=== PATIENT | male | born 1960 | race Caucasian/White ===

== ENCOUNTER 2018-08-21 17:07 | Emergency (ER) | payer MEDICAID ==
[~2018-08-21 17:07] MED LIST: CYCL10TA7 PO; GABA-531 PO; HYDR-522 PO; IBUP-2030 PO
== END 2018-08-21 19:30 | disposition left against medical advice (07) ==
LOC: ER 19:30
DX: Z53.21 Procedure and treatment not carried out due to patient leaving prior to being seen by health care provider (principal)

== ENCOUNTER 2018-12-16 11:27 | Emergency (ER) | payer MEDICAID ==
[~2018-12-16] VITALS: Ht 180.3 cm; Wt 90.0 kg
[2018-12-16] MEDS ORDERED: TETANUS, DIPHTHERIA, PERTUSSIS VAC/PF 0.5ML (>7YR OLD) IM ONE (12:45)
[2018-12-16 13:05] VITALS: BP 119/73
== END 2018-12-16 13:06 | disposition home or self-care (01) ==
LOC: ER 11:36
DX: S61.011A Laceration without foreign body of right thumb without damage to nail, initial encounter (principal); Z23 Encounter for immunization; M19.90 Unspecified osteoarthritis, unspecified site; W45.8XXA Other foreign body or object entering through skin, initial encounter; Y93.89 Activity, other specified; Y92.89 Other specified places as the place of occurrence of the external cause
CPT/HCPCS: 90471; 90715; 99283

== ENCOUNTER 2022-11-27 21:38 | Emergency (ER) | payer MEDICAID ==
[~2022-11-27 21:38] MED LIST changes: +CYCL10TA21 PO; -CYCL10TA7 PO; -GABA-531 PO; +GABA-532 PO
[2022-11-27 21:45] VITALS: PULSE 94
== END 2022-11-27 22:00 | disposition left against medical advice (07) ==
LOC: ER 21:38
DX: M79.675 Pain in left toe(s) (principal); R51.9 Headache, unspecified
CPT/HCPCS: 99281

== ENCOUNTER 2022-11-28 02:27 | Emergency (ER) | payer MEDICAID ==
[~2022-11-28] VITALS: Ht 172.7 cm; Wt 77.0 kg
[2022-11-28 02:37] VITALS: O2SAT 100
[2022-11-28] MEDS ORDERED: IBUPROFEN 400MG TABLET PO ONE (07:45)
[2022-11-28 09:31] VITALS: BP 139/86; PULSE 68; RESP 18; TEMP 97.9
== END 2022-11-28 09:33 | disposition home or self-care (01) ==
LOC: ER 02:27
DX: M79.675 Pain in left toe(s) (principal); W22.8XXA Striking against or struck by other objects, initial encounter; Y93.89 Activity, other specified; Y92.89 Other specified places as the place of occurrence of the external cause; Y99.8 Other external cause status
CPT/HCPCS: 73630; 99283

== ENCOUNTER 2024-02-24 19:23 | Emergency (ER) | payer MEDICAID ==
[~2024-02-24] VITALS: Ht 177.8 cm; Wt 82.0 kg
[~2024-02-24 19:23] MED LIST changes: +GABA-1180 PO; -GABA-532 PO
[2024-02-24 19:31] VITALS: O2SAT 100
[2024-02-24 20:08] LABS: BASOPHILS % 0.4 % (0.0-2.0); EOSINOPHILS % 0.5 % (0.0-5.0); HEMATOCRIT. 44.8 % (42.0-52.0); HEMOGLOBIN. 15.2 g/dL (14.0-18.0); LYMPHOCYTES % 13.9 % (20.0-50.0); MEAN CORPUSCULAR HEMOGLOBIN 30.3 pg (28.0-32.0); MEAN CORPUSCULAR HGB CONC 33.9 g/dL (31.0-37.0); MEAN CORPUSCULAR VOLUME 89.2 fL (80.0-94.0); MEAN PLATELET VOLUME 7.6 fl (7.4-10.4); MONOCYTES % 6.7 % (2.0-8.0); NEUTROPHILS % 78.5 % (40.0-76.0); PLATELET 226 x1000/uL (130-400); RED BLOOD CELL COUNT 5.02 mill/uL (4.7-6.1); RED CELL DISTRIBUTION WIDTH 13.4 % (11.6-14.6); WHITE BLOOD COUNT 7.4 x1000/uL (4.5-11.0)
[2024-02-24 20:15] LABS: CARBON DIOXIDE 25 mEq/L (21-32); CHLORIDE 103 mEq/L (98-107); POTASSIUM 3.8 mEq/L (3.5-5.1); SODIUM 133 mEq/L (136-145)
[2024-02-24 20:16] LABS: CALCIUM 9.2 mg/dL (8.7-10.4)
[2024-02-24 20:20] LABS: CREATININE 0.7 mg/dL (0.6-1.3)
[2024-02-24 20:21] LABS: GLUCOSE 104 mg/dL (70-105); UREA NITROGEN BLOOD 8 mg/dL (9-23)
[2024-02-24 20:22] LABS: ALANINE AMINOTRANSFERASE 282 IU/L (10-49); ALBUMIN 4.2 g/dL (3.2-4.8); ASPARTATE AMINOTRANSFERASE 641 IU/L (<34)
[2024-02-24 20:23] LABS: BILIRUBIN DIRECT 1.2 mg/dL (<=3.0); BILIRUBIN TOTAL 2.1 mg/dL (0.1-1.0); PROTEIN TOTAL 7.5 g/dL (6.0-8.3)
[2024-02-25] MEDS ORDERED: MORPHINE SULFATE 4 MG/ML INJ (FOR IV/IM USE) IM ONE (00:30)
[2024-02-25] MEDS ORDERED: LIDO700A15 TP (02:02)
[2024-02-25] MEDS ORDERED: NAPR-1176 MT (02:02)
[2024-02-25] MEDS ORDERED: HYDROCODONE/ACETAMINOPHEN 5/325MG TABLET PO ONE (03:45)
[2024-02-25 05:30] VITALS: BP 138/82; PULSE 64; RESP 16; TEMP 36.66960; O2SAT 98
== END 2024-02-25 06:41 | disposition home or self-care (01) ==
LOC: ER 19:23
DX: N20.0 Calculus of kidney (principal); R10.84 Generalized abdominal pain; R14.0 Abdominal distension (gaseous); Z79.899 Other long term (current) drug therapy; Z79.1 Long term (current) use of non-steroidal anti-inflammatories (NSAID)
CPT/HCPCS: 36415; 74176; 80048; 80076; 85025; 93005; 99284